=== PATIENT | female | born 1960 | race Caucasian/White ===

== ENCOUNTER 2021-07-06 02:36 | Emergency (ER) | payer OTHER ==
[2021-07-06 02:48] VITALS: BP 138/72; PULSE 58; TEMP 98; BMI 30.1
[2021-07-06] MEDS ORDERED: IBUPROFEN 600 MG TABLET (FP) PO ONE ×2 (02:49→02:50)
[2021-07-06] MEDS ORDERED: diazePAM 5 MG TABLET ONE (03:29)
[2021-07-06] MEDS ORDERED: diazePAM 5 MG TABLET PO ONE (03:36)
== END 2021-07-06 03:39 | disposition home or self-care (01) ==
LOC: FER 02:36
DX: S69.92XA Unspecified injury of left wrist, hand and finger(s), initial encounter (principal); S10.93XA Contusion of unspecified part of neck, initial encounter; Y04.8XXA Assault by other bodily force, initial encounter; Y07.499 Other family member, perpetrator of maltreatment and neglect
CPT/HCPCS: 73110-TC-RT-FY; 73130-TC-RT-FY; 99284-25